=== PATIENT | female | born 1965 | race African-American/Black ===

== ENCOUNTER 2017-07-26 18:06 | Emergency (ER) | payer OTHER ==
[~2017-07-26] VITALS: Ht 165.1 cm; Wt 69.2 kg
[2017-07-26 20:27] VITALS: BP 153/82
== END 2017-07-26 21:03 | disposition home or self-care (01) ==
LOC: EME 18:06
DX: S43.402A Unspecified sprain of left shoulder joint, initial encounter (principal); S83.92XA Sprain of unspecified site of left knee, initial encounter; M25.552 Pain in left hip; V49.40XA Driver injured in collision with unspecified motor vehicles in traffic accident, initial encounter; Y92.410 Unspecified street and highway as the place of occurrence of the external cause; Z72.0 Tobacco use
CPT/HCPCS: 71046; 72170; 73030; 73564; 99281; 99285